=== PATIENT | male | born 1995 | race Caucasian/White ===

== ENCOUNTER 2020-09-13 17:33 | Outpatient (REF) | payer SELFPAY | END 2020-09-13 17:34 | disposition home or self-care (01) | LOC: HO.LAB 17:33 | PROVIDERS: Visit Provider Internal Medicine | DX: Z20.828 Contact with and (suspected) exposure to other viral communicable diseases (principal) | CPT/HCPCS: C9803; U0003 ==

== ENCOUNTER 2020-09-14 19:39 | Emergency (ER) | payer SELFPAY ==
[2020-09-14 19:44] VITALS: BP 137/82; PULSE 114; RESP 16; TEMP 38.4; O2SAT 96; BMI 41.5
[2020-09-14 19:53] VITALS: BP 151/89; PULSE 106; RESP 16; TEMP 37.8; O2SAT 96; BMI 43.2
--- NOTE | 2020-09-14 20:40 | CT_ITS ---
EXAMINATION: CT ABDOMEN AND PELVIS WITHOUT CONTRAST CLINICAL INFORMATION: Dysuria. Abdominal pain. Question kidney stones. COMPARISON: None TECHNIQUE: Multidetector volumetric imaging was performed from the superior aspect of the liver through the pubic symphysis. Sagittal and coronal reformatted images were obtained on the technologist's workstation. This CT examination was performed using dose optimization techniques as appropriate, variously including the following: *Automated exposure control. *Adjustment of mA and/or kV according to patient size (this includes techniques or standardized protocols for targeted exams where dose is matched to indication/reason for exam; i.e. extremities or head). *Use of iterative reconstruction technique. DLP: 816 mGy-cm FINDINGS: LUNG BASES: The visualized lung bases are unremarkable. LIVER, GALLBLADDER, AND BILIARY TREE: There is diffuse low attenuation of liver parenchyma due to fatty change. No focal liver lesions. No intrahepatic bile duct dilatation. Liver size is normal. Right lobe of liver measures 17.5 cm superior-inferior. The gallbladder is unremarkable with no evidence of radiopaque gallstones, gallbladder wall thickening, or obvious pericholecystic inflammatory changes. PANCREAS: Unremarkable. SPLEEN: Spleen is enlarged measuring 14.4 cm AP. There is a splenule at the inferior splenic margin measuring 1.7 cm. ADRENAL GLANDS: Unremarkable. KIDNEYS AND URETERS: There is a non-obstructive 1 mm stone in the upper pole of the right kidney. No stones seen in the left kidney. There is no hydronephrosis. There is no ureteral calculus. Both kidneys are of normal size and contour with normal cortical thickness. No edema of either kidney. BLADDER: Unremarkable. GASTROINTESTINAL TRACT: No acute abnormality. There is no bowel wall thickening/edema. There is no bowel obstruction. There is a moderate volume of stool in the colon. The appendix is normal in size with no inflammation surrounding the appendix. There is hyperdense material in the lumen of the appendix, appendicoliths. The small bowel loops are unremarkable. The stomach is normal. There is no hiatal hernia. ABDOMINAL WALL: No significant hernia is appreciated. LYMPH NODES: Normal. VASCULAR: Unremarkable. PELVIC VISCERA: Unremarkable. OSSEOUS STRUCTURES: Unremarkable. CT/CT abdomen pelvis wo con IMPRESSION: 1. A 1 mm non-obstructive stone in the upper pole of the right kidney. No other calculi present. No hydronephrosis. The bladder is unremarkable. 2. Borderline splenomegaly. 3. Diffuse fatty change of liver. 4. No inflammation of the appendix. Hyperdense material within the appendix lumen, appendicoliths. 5. No acute change of bowel.
[2020-09-14] MEDS: Acetaminophen 325 MG TABLET 975 MG PO (20:58)
[2020-09-14 21:13] LABS: Glucose Urine UA NEG (NEG); Leukocyte Esterase Urine NEG (NEG); Nitrite Urine NEG (NEG); PH 5.5 (5.0-8.0); Specific Gravity - Urine >= 1.030 (1.005-1.025); Urine Blood 1+ (NEG); Urine Ketones >=80 MG/DL (NEG); Urine Protein 1+ MG/DL (NEG-TRACE)
[2020-09-14 21:17] LABS: Appearance Urine CLEAR; Color Urine YELLOW
[2020-09-14 21:47] LABS: RBC Urine 0-2 /HPF (0); Squamous Epithelial Cell Urine TRACE /LPF
[2020-09-14 22:00] VITALS: BP 131/76; PULSE 88; RESP 16; TEMP 37.4; O2SAT 97
[2020-09-14 22:26] VITALS: PULSE 88; O2SAT 97
--- NOTE | 2020-09-14 22:29 | ED.MALEGU ---
HPI - Male Genitourinary General Chief complaint: Urogenital-Male Stated complaint: flu like symptoms Time Seen by Provider: 09/14/20 20:19 Source: patient Mode of arrival: ambulatory Limitations: no limitations History of Present Illness HPI Narrative: 25-year-old male presenting to the ED with complaints of sore throat with white spots all over his mouth. He has a separate complaint of burning with urination for the past few days although resolved today. Reports he was having some abdominal pain with it which also resolved. Denies any other symptoms complaints or concerns at this time. Denies recent travel or sick contacts. Related Data Previous Rx's Medication Instructions Recorded acetaminophen [Tylenol Extra 1,000 mg PO Q6H PRN #10 tab 09/14/20 Strength] amoxicillin-pot clavulanate 1 tab PO BID 10 Days #20 tab 09/14/20 [Augmentin] ibuprofen 800 mg PO Q8H PRN #14 tab 09/14/20 nystatin 1 ml PO DAILY #60 ml 09/14/20 Allergies Allergy/AdvReac Type Severity Reaction Status Date / Time No Known Allergies Allergy Verified 09/14/20 20:02 Review of Systems Review of Systems: Constitutional : No Fever, No Chills ENT/Mouth : No Ear Pain, No Nasal Congestion, No Sinus Pain, No Hoarseness, + sore throat, No Rhinorrhea, No Swallowing Difficulty Eyes: No Eye Pain, No Swelling, No Redness, No Foreign Body, No Discharge, No Vision Changes Cardiovascular : No Chest Pain, No SOB, No Dyspnea on Exertion, No Orthopnea, No Edema, No Palpitations Respiratory : No Cough, No Sputum, No Wheezing, No Dyspnea Gastrointestinal : No Nausea, No Vomiting, No Diarrhea, No Constipation, + abdominal Pain, No Hematochezia, No Melena Genitourinary : no irregular bleeding, + Dysuria, No Urinary Frequency, No Hematuria, No Urinary Incontinence, No Urgency, No Flank Pain, No Urinary Flow Changes, No Hesitanc, No abdnormal dischargey Musculoskeletal : No joint pain, No Myalgias, No Joint Swelling Skin : No Skin Lesions, No rash Neuro : No Weakness, No Dizziness, No Headache Yes all other systems are reviewed and are negative [facility] Past Medical History Attestation statement: The following information was validated with the patient. Medical History No known health problems Social History Social History Alcohol intake: never Smoking Status: Never smoker Use of substances other than those prescribed or required for medical reasons: No Advance Directives: No Advance Directives Information Provided: Yes Physical Exam Vital Signs: Vital Signs: Last Vital Signs Temp 99.4 F 09/14/20 22:00 Pulse 88 09/14/20 22:00 Resp 16 09/14/20 22:00 BP 131/76 09/14/20 22:00 Pulse Ox 97 09/14/20 22:26 Body Mass Index 43.2 vital signs have been reviewed as normal and appeared to be correct. Blood pressure normal. Heart rate tachycardic. Respiration rate normal. Temperature febrile. Oxygen saturation normal. Appearance: Alert. Oriented X3. No acute distress. Head: Normal external exam. Normocephalic. Atraumatic. No Kruse signs noted. No raccoon eyes noted Eyes: PERRLA. EOMI. Conjunctiva and sclera normal. Eyelids normal. ENT: EAC normal. TM's Normal. Patient multiple white spots in his mouth consistent with thrush, tonsils erythematous with exudate noted. Pharynx normal. Uvula midline. Moist mucous membranes. No trismus noted. No drooling noted. No muffled voice noted. Neck: Normal inspection. Neck supple. FROM. No adenopathy. Thyroid Normal. No meningeal signs. No neck mass noted. CVS: Normal heart rate and rhythm. Heart sound normal. No murmurs noted. Pulses normal throughout. Respiratory: No respiratory distress. Painless inspiration. Breath sounds normal. No wheezes/rales/rhonchi noted. Chest nontender. No accessory muscle usage noted or decreased air movement noted. Abdomen: Soft and mild ttp of suprapubic abdomen. Bowel sounds normal in all 4 quadrants. No distention noted. No organomegaly noted. No visible injury noted. Back: No CVA tenderness. Full range of motion noted. Skin: Skin warm and dry. Normal skin color. Normal skin turgor. No rashes/lesions/lacerations noted. Extremities: Extremities exhibit normal range of motion. Extremities nontender. Neuro: Oriented X 3. No motor deficit. No sensory deficit. Reflexes normal. Course Course Course Narrative: 21PM - 25-year-old male presenting to the ED with complaints of sore throat with white spots all over his mouth. He has a separate complaint of burning with urination for the past few days although resolved today. Reports he was having some abdominal pain with it which also resolved. - on exam patient has thrush and pharyngitis it appears like. Uvula is midline. Not consistent with peritonsillar abscess at this time. - Concern for strep throat. vs Kidney stone vs UTI vs STD. - Plan: Pt is refusing all blood work due to phobia. Strep throat culture, urine sample to evaluate for possible UTI versus gonorrhea/chlamydia and CT scan of abd/pelvis without IV contrast to evaluate for possible kidney stones and provide 975 mg of Tylenol then re-evaluate Reevaluation(s) Reevaluation #1: CT scan of abdomen and pelvis revealed a 1 mm nonobstructive stone in the upper pole of the right kidney and borderline splenomegaly and diffuse fatty changes of liver. Otherwise no other acute processes noted. I printed this copy out and gave a print out to the patient. Instructed to return if any new or worsening symptoms. Gonorrhea chlamydia swab pending. Patient denies any thoughts of STD and does not want to be treated at this time. COVID swab pending at this time. Will treat for thrush and pharyngitis along with instructions to return if any new or worsening symptoms. Patient understands agrees with this plan. Time: 00:12 [facility] - Male Genitourinary Medical Records Attestation: I reviewed the patient's medical records. Lab Data Attestation: I reviewed the patient's lab results. Labs: Lab Results 09/14/20 Range/Units 20:56 Urine Color YELLOW Urine Appearance CLEAR Urine pH 5.5 (5.0-8.0) Ur Specific [place] >= 1.030 H (1.005-1.025) Urine Protein 1+ H (NEG-TRACE) MG/DL Urine Glucose (UA) NEG (NEG) MG/DL Urine Ketones >=80 (NEG) MG/DL Urine Blood 1+ H (NEG) Urine Nitrite NEG (NEG) Ur Leukocyte Esterase NEG (NEG) Urine RBC 0-2 (0) /HPF Urine WBC 1-4 (0-4) /HPF Ur Squamous Epith Cells TRACE /LPF Urine Bacteria NONE /LPF Imaging Data CT scan - abdomen: Attestation: I personally reviewed and interpreted this imaging study as follows: Radiologist's impression: IMPRESSION: 1. A 1 mm non-obstructive stone in the upper pole of the right kidney. No other calculi present. No hydronephrosis. The bladder is unremarkable. 2. Borderline splenomegaly. 3. Diffuse fatty change of liver. 4. No inflammation of the appendix. Hyperdense material within the appendix lumen, appendicoliths. 5. No acute change of bowel. Discharge Plan Discharge Clinical Impression: Pharyngitis, Candidiasis of mouth Patient Disposition: Home, Self-Care Instructions: Pharyngitis (ED), Oral Candidiasis (ED) Additional Instructions: You have pending lab results if any are positive you will be contacted. Based on your symptoms and history we have sent a COVID-19. Although your RESULT IS PENDING at this time. RESULTS should return within 72 hours. At this time you will be contacted with either NEGATIVE OR POSITIVE results. -Please wait until we contact you for your results. At this time you will be okay for discharge. Please plan for self quarantine for up to 14 days. Do not expose yourself to others. You may not go to work. If testing does come back negative you may return to activities as long as you are no longer having any symptoms for at least 3 days. Please continue to follow cold instructions and wash your hands frequently. You may take Tylenol as directed on the bottle for pain or fever. Patient seen in the emergency department on 09/14/2020 and should be excused from work until negative test results AND until 72 hours without any symptoms AND at least 10 days have passed since symptoms first appeared or since last exposure to COVID-19 positive patient CDC Guidelines for home isolation: - Stay away from others - WEAR A MASK if you are sick AND STAY HOME - Cover your mouth and nose with a tissue when you cough or sneeze. Dispose of tissues in a lined trash can and wash your hands immediately with soap and water for at least 20 seconds. If soap and water are not available, clean hands with alcohol-based hand game warden that contains at least 60% alcohol. - Clean your hands often with soap and water for at least 20 seconds - Avoid touching your eyes, nose and mouth with unwashed hands - Do not share dishes, drinking glasses, cups, eating utensils, towels, or bedding with other people in your home. After using these items, wash them thoroughly with soap and water or put in the metal drill operator. - Clean high-touch surfaces in your isolation area ( sick room and bathroom) every day; let a caregiver clean and disinfect high-touch surfaces in other areas of the home. Clean the area or item with soap and water or another detergent if it is dirty. Then, use a household disinfectant. - Limit contact with pets and animals: If you must care for a pet, wash your hands before and after interacting with them). Prescriptions: New amoxicillin-pot clavulanate [Augmentin] 875-125 mg tablet 1 tab PO BID 10 Days Qty: 20 RF: 0 acetaminophen [Tylenol Extra Strength] 500 mg tablet 1,000 mg PO Q6H PRN (Reason: fever or pain) Qty: 10 RF: 0 nystatin 100,000 unit/mL suspension 1 ml PO DAILY Qty: 60 RF: 0 ibuprofen 800 mg tablet 800 mg PO Q8H PRN (Reason: pain) Qty: 14 RF: 0 Referrals: Physician,Unknown [Primary Care Provider] - 2 days (your pcp) Stand Alone Forms: Work/School Release Print Language: Sudanese
[2020-09-20 11:32] LABS: CT PCR NOT DETECTED (Not Detect.); NG PCR NOT DETECTED (Not Detect.)
== END 2020-09-15 00:15 | disposition home or self-care (01) ==
PROVIDERS: Physician Assistant Medical; Emergency Provider Emergency Medicine Emergency Medical Services
DX: B37.0 Candidal stomatitis (principal); J02.9 Acute pharyngitis, unspecified; R30.0 Dysuria; Z79.899 Other long term (current) drug therapy
CPT/HCPCS: 74176; 81001; 87071; 87491; 87591; 87880; 99284; 99285